=== PATIENT | female | born 2000 | race Caucasian/White ===

== ENCOUNTER 2020-07-28 11:57 | Emergency (ER) | payer BC ==
[~2020-07-28] VITALS: Ht 154.9 cm; Wt 51.4 kg
[2020-07-28 12:06] VITALS: TEMP 98.1
[2020-07-28] MEDS ORDERED: ZYRTEC 10MG10 MG PO (12:21)
[2020-07-28] MEDS ORDERED: SINGULAIR 110 MG/TAB PO (12:21)
[2020-07-28] MEDS ORDERED: 00186-0372-20 IH (12:21)
[2020-07-28] MEDS ORDERED: PROAIR HFA0.09 MG/AC IH (12:22)
[2020-07-28 12:44] LABS: COLLECTION METHOD CLEAN CATCH
[2020-07-28 12:50] LABS: MUCOUS Present /lpf; PH 6 (5-8); URINE APPEARANCE Hazy; URINE BACTERIA None Seen /hpf; URINE BILIRUBIN Negative (NEGATIVE); URINE BLOOD Negative (NEGATIVE); URINE COLOR Yellow; URINE GLUCOSE Negative (NEGATIVE); URINE KETONE 1+ (NEGATIVE); URINE LEUKOCYTE ESTERASE Negative (NEGATIVE); URINE NITRATE Negative (NEGATIVE); URINE PROTEIN(semi-quant) Negative (NEGATIVE); URINE RBC 0-2 /hpf; URINE UROBILINOGEN Negative (NEGATIVE)
[2020-07-28 13:01] LABS: BASO % 0.4 % (0.0-2.0); EOS # 0.6 (0.0-0.7); EOS % 8.2 % (0-4.0); GRAN # 4.3 (1.4-6.5); GRAN % 55.9 % (42.2-75.2); HEMATOCRIT 41.3 % (35.0-45.0); HEMOGLOBIN 13.1 g/dl (12.0-15.0); LYMPH # 2.2 (1.2-3.4); LYMPH % 28.5 % (20.0-51.0); MEAN CELL VOLUME 94 fl (80.0-95.0); MEAN CORPUSCULAR HEMOGLOBIN 30 pg (26.0-32.0); MEAN CORPUSCULAR HGB CONC 32 g/dl (33.0-37.0); MEAN PLATELET VOLUME 8.7 fl (7.4-10.4); MONO # 0.5 (0.1-0.6); MONO % 6.7 % (1.7-9.3); PLATELET COUNT 392 K/mm3 (130-400); REDCELL DISTRIBUTION WIDTH-CV 12.6 % (11.5-14.5)
[2020-07-28 13:06] LABS: TRICYCLIC ANTIDEPRESS URINE NEGATIVE
[2020-07-28 13:13] LABS: ALANINE AMINOTRANSFERASE 17 U/L (4-34); ALBUMIN 4.4 gm/dL (3.5-5.0); ALKALINE PHOSPHATASE 44 U/L (50-136); ANION GAP 10 mmol/L (7-16); AST,SGOT 26 U/L (15-37); BILIRUBIN,TOTAL 0.2 mg/dL (0.0-1.0); BLOOD UREA NITROGEN 15 mg/dL (7-17); CALCIUM 9.2 mg/dL (8.4-10.2); CARBON DIOXIDE 27 mmol/L (22-30); CHLORIDE 101 mmol/L (98-107); CREATININE, serum 0.67 (0.52-1.25); GLUCOSE 90 mg/dL (74-106); SODIUM 139 mmol/L (137-145); TOTAL PROTEIN 7.5 gm/dL (6.4-8.2)
[2020-07-28 13:15] LABS: ACETAMINOPHEN < 10 ug/mL (10-30); ALCOHOL(ethanol),MEDICAL < 10 mg/dL; SALICYLATE < 1.0 mg/dL
[2020-07-28 16:20] VITALS: BP 131/85; PULSE 70
== END 2020-07-28 16:20 | disposition home or self-care (01) ==
LOC: COL.ER 11:57
PROVIDERS: Nurse Practitioner
DX: F32.9 Major depressive disorder, single episode, unspecified (principal); R45.851 Suicidal ideations; F17.290 Nicotine dependence, other tobacco product, uncomplicated; Z88.8 Allergy status to other drugs, medicaments and biological substances

== ENCOUNTER 2022-06-28 13:17 | Emergency (ER) | payer BC ==
[~2022-06-28] VITALS: Ht 154.9 cm; Wt 70.5 kg
[~2022-06-28 13:17] MED LIST: 00186-0372-20 IH; PROAIR HFA0.09 MG/AC IH; SINGULAIR 110 MG/TAB PO; ZYRTEC 10MG10 MG PO
[2022-06-28 13:20] VITALS: TEMP 98.5
[2022-06-28] MEDS ORDERED: PREDNISONE20 MG PO (15:10)
[2022-06-28] MEDS ORDERED: PROAIR HFA0.09 MG/AC IH (15:10)
[2022-06-28 15:16] VITALS: BP 104/64; PULSE 102
== END 2022-06-28 15:21 | disposition home or self-care (01) ==
LOC: COL.ER 13:17
DX: J45.901 Unspecified asthma with (acute) exacerbation (principal); Z28.310 Unvaccinated for COVID-19
CPT/HCPCS: J7512